=== PATIENT | male | born 1935 | race Caucasian/White ===

== ENCOUNTER 2016-11-05 12:36 | Inpatient (IN) | payer OTHER ==
[2016-11-05 12:52] LABS: MANUAL DIFF NEEDED? NO
[2016-11-05 12:53] LABS: BASO% 0.2 % (0.0-0.8); EOS# 0.05 X1000 (0.0-0.7); EOS% 0.4 % (0.0-10.0); HEMATOCRIT 33.7 % (42.0-52.0); HEMOGLOBIN 10.5 g/dL (14.0-18.0); IMM GRAN# 0.21 X1000 (0.0-0.04); IMM GRAN% 1.7 % (0.0-0.5); LYMPH# 2.38 X1000 (1.2-3.4); LYMPH% 18.9 % (20.5-51.1); MCH 30.8 PG (27-31); MCHC 31.2 g/dL (33-37); MCV 98.8 FL (81-99); MONO% 6.4 % (1.7-9.3); MPV 9.7 FL (7.4-10.4); NEUT% 72.4 % (42.2-75.2); PLT 312 X1000 (130-400); RBC 3.41 XMIL (4.7-6.1)
[2016-11-05 13:08] LABS: INR 1.08 (0.86-1.15); PROTIME 14.3 Seconds (12.1-15.5)
[2016-11-05 13:09] LABS: PTT PL 32.6 Seconds (22.6-43.9)
--- NOTE | 2016-11-05 13:15 | PROVIDER DOCUMENTATION ---
HPI-Respiratory General - General Chief Complaint: Shortness of Breath Stated Complaint: SOB Time Seen by Provider: 11/05/16 13:12 Source: patient Allergies/Adverse Reactions: Patient Allergies Allergy/AdvReac Type Severity Reaction Status Date / Time No Known Allergies Allergy Verified 05/30/15 08:59 Home Medications: Home Medication List Medication Instructions Recorded Confirmed Last Taken Type Atorvastatin Calcium [Lipitor] 20 mg PO DAILY 04/13/15 06/01/15 05/30/15 History Metoprolol Succinate E.r. [Toprol 25 mg PO BID 04/13/15 06/01/15 05/30/15 History Xl] Ubidecarenone [Co Q-10] 200 mg PO DAILY 05/30/15 06/01/15 05/30/15 History - History of Present Illness-Resp Nature of Presenting Problem: Pt is present to the Er with complaints of difficulty breathing and coughing. pt denies wearing oxygen at home.Pt has a hx of pneumonia, prostate cancer nd OR. Pt denies hx of blood clots. Pt states he is always constipated at home. pt denies nausea and appears in no acute distress. Quality of Pain: reports: aching (when breathing) Severity in ED: reports: mild Onset/Duration: reports: unsure Timing: reports: still present Cough Quality/Degree: reports: moderate Associated Symptoms: reports: chest pain/soreness (when breathing) Similar Symptoms Previously?: No Recently seen or treated by another doctor?: No Review of Systems - Adult - REVIEW OF SYSTEMS - ADULT Constitutional: denies: chills, fatique, night sweats Eyes: reports: no symptoms reported Ears, Nose, Mouth & Throat: reports: no symptoms reported Cardiovascular: reports: chest pain (pt states pain is all over the chest and it hurts when breathing) Respiratory: reports: cough, wheezing (right side), other (Bilateral rhonchi NSR ; frequent PVC's). denies: shortness of breath Gastrointestinal: reports: constipation (pt states he is always constipated). denies: abdominal pain, hematemesis Genitourinary: reports: no symptoms reported Musculoskeletal: reports: no symptoms reported Integumentary: reports: no symptoms reported Neurological: reports: no symptoms reported Psychiatric: reports: no symptoms reported Endocrine: reports: no symptoms reported Hematologic/Lymphatic: reports: no symptoms reported Allergic/Immunologic: reports: no symptoms reported All Other Systems: Reviewed and Negative Past History - Adult - PAST MEDICAL HISTORY-ADULT Review of Records: reports: Nursing Assessment Review Major Childhood Illnesses: reports: denies history Cardiovascular: reports: HTN Respiratory: reports: denies history Gastrointestinal: reports: denies history Obstetrical/Gynecological: reports: denies history Genitourinary: reports: kidney stones, prostate cancer Musculoskeletal: reports: denies history Neurological: reports: CVA Endocrine/Immune: reports: Diabetes Other Conditions: reports: denies history - PRIOR SURGERIES/PROCEDURES Surgical/Procedure History: reports: none - PRIOR HOSPITALIZATIONS Prior Hospitalizations: reports: for similar symptoms - IMMUNIZATION STATUS Childhood Immunizations: See Nurse Assessment Flu Vaccine: See Nurse Assessment - FAMILY HISTORY Family History: reviewed, not pertinent - SOCIAL HISTORY Substance Use: none/never Alcohol Use Frequency: never Physical Exam-General - PHYSICAL EXAM-ADULT Initial Vital Signs Reviewed: Yes - CONSTITUTIONAL General Appearance: alert, no apparent distress - EYES Eyes: PERRL/EOMI, pink conjunctivae - HEAD, EARS, NOSE, MOUTH & THROAT HENMT: moist mucous membranes - NECK Neck: non-tender, full range of motion - RESPIRATORY Respiratory: chest non-tender, rhonchi (bilateral), wheezing (right ride) - CARDIOVASCULAR Cardiovascular: regular rate, rhythm (SR with occ PVC's and PAC's Left bundle branch block abnormal ECG), no edema - GASTROINTESTINAL (ABDOMEN) Abdominal Exam: normal bowel sounds, non tender, soft - LYMPHATIC Lymphatic: no adenopathy - MUSCULOSKELETAL Extremity: normal range of motion, non-tender - SKIN Integumentary: normal color, normal turgor, warm/dry - NEUROLOGIC Neurologic: grossly normal - PSYCHIATRIC Psych/Mental Status: normal mood/affect, oriented x 3 Progress - PLAN OF CARE/RESULTS Progress/Plan/Lab Results: Laboratory Tests 11/05/16 11/05/16 11/05/16 12:48 12:48 12:48 WBC RBC Hgb Hct MCV MCH MCHC RDW Std Deviation Plt Count MPV Immature Gran % (Auto) Neut % (Auto) Lymph % (Auto) [place] % (Auto) Eos % (Auto) Baso % (Auto) Immature Gran # (Auto) Neut # (Auto) Lymph # (Auto) [place] # (Auto) Eos # (Auto) Baso # (Auto) PT INR APTT (Factor Assay) Specimen Type Sample Site pH pCO2 pO2 HCO3 Base Excess Oxyhemoglobin ABG O2 Sat (Calculated) ABG O2 Saturation ABG Carboxyhemoglobin ABG Methemoglobin Jose Test A-a O2 Difference Total Hemoglobin Lactate Blood Gas Modality FiO2 % Sodium 140 Potassium 4.4 Chloride 103 Carbon Dioxide 26 Anion Gap 11 BUN 31 H Creatinine 1.6 H Estimated GFR/1.73 m2 41 BUN/Creatinine Ratio 19 Glucose 178 H Calculated Osmolality 290 Calcium 9.1 Magnesium 2.5 Total Bilirubin 0.30 AST 14 ALT 8 L Alkaline Phosphatase 91 Creatine Kinase 42 Troponin T < 0.010 Rsy-T-Dgsebwjeftl Pept 4515 H Total Protein 6.8 Albumin 3.5 Globulin 3.0 Albumin/Globulin Ratio 1.0 Influenza A (Rapid) Influenza B (Rapid) 11/05/16 11/05/16 11/05/16 12:48 12:48 12:48 WBC 12.56 H RBC 3.41 L Hgb 10.5 L Hct 33.7 L MCV 98.8 MCH 30.8 MCHC 31.2 L RDW Std Deviation 12.6 Plt Count 312 MPV 9.7 Immature Gran % (Auto) 1.7 H Neut % (Auto) 72.4 Lymph % (Auto) 18.9 L [place] % (Auto) 6.4 Eos % (Auto) 0.4 Baso % (Auto) 0.2 Immature Gran # (Auto) 0.21 H Neut # (Auto) 9.10 H Lymph # (Auto) 2.38 [place] # (Auto) 0.80 H Eos # (Auto) 0.05 Baso # (Auto) 0.02 PT 14.3 INR 1.08 APTT (Factor Assay) 32.6 Specimen Type Sample Site pH pCO2 pO2 HCO3 Base Excess Oxyhemoglobin ABG O2 Sat (Calculated) ABG O2 Saturation ABG Carboxyhemoglobin ABG Methemoglobin Jose Test A-a O2 Difference Total Hemoglobin Lactate Blood Gas Modality FiO2 % Sodium Potassium Chloride Carbon Dioxide Anion Gap BUN Creatinine Estimated GFR/1.73 m2 BUN/Creatinine Ratio Glucose Calculated Osmolality Calcium Magnesium Total Bilirubin AST ALT Alkaline Phosphatase Creatine Kinase Troponin T Lqp-B-Saxtycafbdu Pept Total Protein Albumin Globulin Albumin/Globulin Ratio Influenza A (Rapid) NEGATIVE Influenza B (Rapid) NEGATIVE 11/05/16 13:15 WBC RBC Hgb Hct MCV MCH MCHC RDW Std Deviation Plt Count MPV Immature Gran % (Auto) Neut % (Auto) Lymph % (Auto) [place] % (Auto) Eos % (Auto) Baso % (Auto) Immature Gran # (Auto) Neut # (Auto) Lymph # (Auto) [place] # (Auto) Eos # (Auto) Baso # (Auto) PT INR APTT (Factor Assay) Specimen Type ARTERIAL Sample Site L RADIAL pH 7.38 pCO2 48 H pO2 50 L HCO3 26.9 H Base Excess 2.7 Oxyhemoglobin 86.7 L* ABG O2 Sat (Calculated) 11.7 L ABG O2 Saturation 90.5 L ABG Carboxyhemoglobin 2.50 ABG Methemoglobin 1.6 H Jose Test YES A-a O2 Difference 40.0 Total Hemoglobin 9.6 L Lactate 0.50 Blood Gas Modality ROOM AIR FiO2 % 21.0 Sodium Potassium Chloride Carbon Dioxide Anion Gap BUN Creatinine Estimated GFR/1.73 m2 BUN/Creatinine Ratio Glucose Calculated Osmolality Calcium Magnesium Total Bilirubin AST ALT Alkaline Phosphatase Creatine Kinase Troponin T Kls-P-Eglddrphomy Pept Total Protein Albumin Globulin Albumin/Globulin Ratio Influenza A (Rapid) Influenza B (Rapid) Orders Category Date Time Status Admit - [facility] Routine AdmDCTranf 11/05/16 13:45 Ordered Activity - Bed Rest with BRP ORDERED Care 11/05/16 13:45 Active Call Admitting on Arrival AT ADMISSION Care 11/05/16 13:45 Active Cardiac Monitoring DIRECTED Care 11/05/16 12:37 Inactive Cardiac Monitoring DIRECTED Care 11/05/16 12:56 Inactive Cardiac Monitoring DIRECTED Care 11/05/16 12:59 Active Neurological Check q2h Care 11/05/16 13:45 Active Oxygen Therapy- ED Nursing DIRECTED Care 11/05/16 12:37 Inactive Oxygen Therapy- ED Nursing DIRECTED Care 11/05/16 12:56 Inactive Oxygen Therapy- ED Nursing DIRECTED Care 11/05/16 12:59 Active Saline Loc DIRECTED Care 11/05/16 13:45 Active Saline Loc NOW Care 11/05/16 12:37 Inactive Saline Loc NOW Care 11/05/16 12:56 Inactive Saline Loc NOW Care 11/05/16 12:59 Active Vital Signs Order Q2H Care 11/05/16 13:45 Active Heart Healthy Diet Diet 11/05/16 13:47 Active CHEST-2 VIEWS [RAD] Stat Exams 11/05/16 12:59 Draft ABG [RESP] Routine Lab 11/05/16 13:15 Completed BLOOD CULTURE [BLDCUL] Stat Lab 11/05/16 13:42 Ordered CBC WITH ELECTRONIC DIFF [HEME] Stat Lab 11/05/16 12:48 Completed CK PROFILE [SP CHEM] Stat Lab 11/05/16 12:48 Completed COMPREHENSIVE METABOLIC PANEL [CHEM] Stat Lab 11/05/16 12:48 Completed Flu [INFLUENZA SCREEN PL] Stat Lab 11/05/16 12:48 Completed LACTATE, PLASMA [CHEM] Stat Lab 11/05/16 13:42 Uncollected MAGNESIUM [CHEM] Stat Lab 11/05/16 12:48 Completed PRO B-NATRIURETIC PEPTIDE Stat Lab 11/05/16 12:48 Com[address]IME WITH INR PL [COAG] Stat Lab 11/05/16 12:[address] [COAG] Stat Lab 11/05/16 12:48 Completed TROPONIN T Stat Lab 11/05/16 12:48 Completed Albuterol 2.5MG/Ipratrop 0.5MG [Duoneb (A & A)] Med 11/05/16 13:41 Discontinued 3 ml INH NOW ONE Albuterol 2.5MG/Ipratrop 0.5MG [Duoneb (A & A)] Med 11/05/16 15:30 Active 3 ml INH RTQ4H Ondansetron [Zofran] Med 11/05/16 13:45 Active 4 mg IV Q4H PRN PRN Aerosol Treatments Routine Oth 11/05/16 13:41 Active Aerosol Treatments Routine Oth 11/05/16 13:47 Active Aerosol Treatments Stat Oth 11/05/16 13:41 Active Aerosol Treatments Stat Oth 11/05/16 13:47 Active Oxygen Device Routine Oth 11/05/16 13:46 Active Telemetry [OM.EQ] Routine Oth 11/05/16 13:45 Active EKG [EKG] Stat Ther 11/05/16 12:59 Draft Transfer/Admit Order [TRANSFER] Routine Transfer 11/05/16 13:42 Ordered Vital Signs - 24 hr 11/05/16 12:42 Temperature 98 F Pulse Rate 73 Respiratory 20 Rate Blood Pressure 141/69 O2 Sat by Pulse 92 L Oximetry - EKG 1 Time of EKG reading by physician:: 13:17 EKG Read and Signed by:: Ousmane Ruiz EKG Interpretation (*Must complete 3 of following elements*): Abnormal Rate: 71 Rhythm: SR with occ PVC's and PAC's QRS: LBB - XRAY 1 XRAY: Bilateral XRAY Study: Chest Impression: Abnormal (COPD changes pulmonary fibrosis dipharmatic and hiatal hernia) - CONSULTS/PCP/HOSPITALIST Notification #1 *Consult/PCP/Hospitalist*: MD Luo Time Discussed: 13:44 Reason/Comments: call him for admission Consult Disposition: Admit Departure - Departure Time of Disposition Order: 13:42 DIAGNOSIS: SOB (shortness of breath), COPD exacerbation, Bronchitis Disposition: ADMITTED INPATIENT 09 Certified Medical Emergency: Emergent Condition: Stable Referrals: Michele Luo MD [Primary Care Provider] - Attestation - Scribe Verification/Attestation Scribe:: Prateek Littlejohn Acting as Scribe for:: Ousmane Ruiz Scribe documention review:: This chart was documented by a scribe and accurately reflects the service the provider performed and the decisions made by the provider.
[2016-11-05 13:32] LABS: ALBUMIN 3.5 g/dL (3.5-5.0); CALCIUM 9.1 mg/dL (8.8-10.2); MAGNESIUM 2.5 mg/dL (1.5-2.7); POTASSIUM 4.4 mmol/L (3.5-5.1); TOTAL BILIRUBIN 0.3 mg/dL (0.20-1.00); TOTAL PROTEIN 6.8 g/dL (6.3-8.3)
--- NOTE | 2016-11-05 13:37 | Diag Imaging Result Document ---
PROCEDURE NAME: CHEST-2 VIEWS - 11/05/2016 FRONTAL AND LATERAL CHEST, 2 VIEWS. COMPARISON: Compared to 05/17/2015. FINDINGS: The right hemidiaphragm is elevated. The heart is not enlarged. There are increased interstitial markings diffusely in both lungs. These appear fairly similar to that of the prior exam considering the differences in technique. No pleural effusions. There are multiple pieces of metal in the back and abdomen. These were present on the prior exam. IMPRESSION: Increased interstitial markings believed to be fibrosis.
[2016-11-05] MEDS ORDERED: DUONEB (A & A) INH ONE (13:41)
[2016-11-05 13:46] LABS: BE 2.7 mmoll (-3.0-3.0); BLOOD TYPE ARTERIAL; DRAW SITE L RADIAL; METHB 1.6 % (0.0-1.5); O2(CT) 11.7 mL/dL (15.0-23.0); PCO2(98.6) 48 mmHg (35-45); PO2(98.6) 50 mmHg (60-100); SAMPLE BLOOD; SAO2 90.5 % (95.0-100.0); THB 9.6 g/dL (11.5-17.4); pH(98.6) 7.38 (7.35-7.45)
[2016-11-05 13:48] LABS: ALLEN TEST YES; MODALITY ROOM AIR
--- NOTE | 2016-11-05 13:52 | EKG Report ---
Test Performed on : 11/05/2016 1:17:38 PM Test Reason : CHEST PAIN Blood Pressure : / mmHG Vent. Rate : 071 BPM Atrial Rate : 071 BPM P-R Int : 154 ms QRS Dur : 122 ms QT Int : 394 ms P-R-T Axes : 069 -29 059 degrees QTc Int : 428 ms Sinus rhythm. with occasional premature ventricular complexes. and premature atrial complexes. Left bundle branch block Abnormal ECG When compared with ECG of 30-SEP-2014 11:47, premature ventricular complexes. are now present Vent. rate has decreased BY 36 BPM Left bundle branch block is now present Criteria for Anterior infarct are no longer present Unconfirmed Result
[2016-11-05] MEDS ORDERED: LASIX IV ONE (14:03)
[2016-11-05] MEDS: ZOFRAN IV PRN (14:59)
[2016-11-05] MEDS: DUONEB (A & A) INH SCH ×3 (15:26→23:34)
[2016-11-05 16:41] LABS: URINE SOURCE CLEAN CATCH
[2016-11-05 16:52] LABS: BILIRUBIN URINE NEGATIVE (NEGATIVE); BLOOD URINE 2+ (NEGATIVE); CLARITY VERY CLOUDY (CLEAR); COLOR YELLOW; GLUCOSE URINE NEGATIVE (NEGATIVE); LEUKOCYTES URINE 2+ (NEGATIVE); NITRITE URINE POSITIVE (NEGATIVE); PROTEIN URINE 1+(30 mg/dL) mg/dL (NEGATIVE); UROBILINOGEN URINE NORMAL
[2016-11-05 17:00] LABS: URINE CULTURE PL NEEDED? YES; URINE EPITHELIAL CELLS <10 /HPF (<10); URINE WBC 20-40 /HPF (<10)
[2016-11-05] MEDS ORDERED: ROCEPHIN 1 GM/NS 50 ML IV STA (18:06)
[2016-11-05] MEDS ORDERED: NS 500 ML ONE (18:21)
[2016-11-05] MEDS ORDERED: NS 500 ML IV SCH (18:30)
[2016-11-05] MEDS: ZITHROMAX 500 MG/NS 250 ML IV SCH (19:14)
[2016-11-05] MEDS: TOPROL XL PO SCH (21:21)
[2016-11-06] MEDS: ZOFRAN IV PRN ×2 (02:01→12:59)
[2016-11-06] MEDS: DUONEB (A & A) INH SCH ×5 (03:30→20:15)
--- NOTE | 2016-11-06 07:32 | Diag Imaging Result Document ---
PROCEDURE NAME: SINUSES BRENNAN VIEW ONLY - 11/05/2016 SINUS SERIES PORTABLE TWO VIEWS: FINDINGS: No sinus opacification. No air fluid levels. There is mucosal thickening inferiorly in the right maxillary sinus. No bony expansion. IMPRESSION: Right maxillary sinusitis.
[2016-11-06] MEDS: TOPROL XL PO SCH ×2 (08:05→22:02)
[2016-11-06] MEDS: COENZYME Q10 PO SCH (08:05)
--- NOTE | 2016-11-06 15:16 | Diag Imaging Result Document ---
PROCEDURE NAME: CHEST-2 VIEWS - 11/06/2016 CHEST, TWO VIEWS: COMPARISON: 11/05/2016, 05/17/2015. INDICATION: Aspiration. FINDINGS: There is cardiomegaly, pulmonary emphysema, and elevated hemidiaphragm, similar to prior. There is stable parenchymal fibrosis, lateral left lung. There is new linear plate-like atelectasis at the right lung base. There is increasing colonic distention. There are multiple radiopaque foreign bodies, as noted previously. IMPRESSION: 1. New plate-like atelectasis at the right lung base. 2. Elevated right hemidiaphragm with increasing bowel distention. 3. Stable left peripheral interstitial fibrosis.
[2016-11-06] MEDS: ZITHROMAX 500 MG/NS 250 ML IV SCH (18:20)
[2016-11-06 21:37] LABS: HEMATOCRIT 30.9 % (42.0-52.0); HEMOGLOBIN 9.7 g/dL (14.0-18.0); MCH 31.1 PG (27-31); MCHC 31.4 g/dL (33-37); MPV 9.4 FL (7.4-10.4); RBC 3.12 XMIL (4.7-6.1)
[2016-11-06] MEDS: LIPITOR PO SCH (22:01)
[2016-11-06 22:21] LABS: ALBUMIN 3.1 g/dL (3.5-5.0); POTASSIUM 4.1 mmol/L (3.5-5.1); TOTAL BILIRUBIN 0.2 mg/dL (0.20-1.00); TOTAL PROTEIN 6.1 g/dL (6.3-8.3)
[2016-11-07] MEDS: DUONEB (A & A) INH SCH ×7 (00:31→22:49)
[2016-11-07] MEDS: COENZYME Q10 PO SCH (08:50)
[2016-11-07] MEDS: TOPROL XL PO SCH ×2 (08:50→19:33)
[2016-11-07] MEDS: ROCEPHIN 1 GM/NS 50 ML IV SCH (16:49)
[2016-11-07] MEDS: ZITHROMAX 500 MG/NS 250 ML IV SCH (17:57)
[2016-11-07] MEDS: LIPITOR PO SCH ×2 (19:33→21:16)
[2016-11-08] MEDS: TOPROL XL PO SCH ×3 (00:59→20:27)
[2016-11-08] MEDS: DUONEB (A & A) INH SCH ×6 (03:41→23:06)
[2016-11-08] MEDS: LINZESS PO SCH (06:03)
[2016-11-08] MEDS: COENZYME Q10 PO SCH (10:16)
[2016-11-08 14:25] LABS: BE 4.3 mmoll (-3.0-3.0); BLOOD TYPE ARTERIAL; METHB 1.6 % (0.0-1.5); O2(CT) 13.2 mL/dL (15.0-23.0); PCO2(98.6) 44 mmHg (35-45); PO2(98.6) 52 mmHg (60-100); SAMPLE BLOOD; SAO2 93.6 % (95.0-100.0); THB 10.4 g/dL (11.5-17.4); pH(98.6) 7.43 (7.35-7.45)
[2016-11-08 14:27] LABS: ALLEN TEST YES; DRAW SITE R RADIAL; MODALITY ROOM AIR
[2016-11-08] MEDS: ROCEPHIN 1 GM/NS 50 ML IV SCH (15:03)
[2016-11-08 16:13] LABS: MANUAL DIFF NEEDED? NO
[2016-11-08] MEDS: LOVENOX SUBQ SCH (16:29)
[2016-11-08 16:57] LABS: ALBUMIN 3.3 g/dL (3.5-5.0); CALCIUM 9.3 mg/dL (8.8-10.2); POTASSIUM 4.9 mmol/L (3.5-5.1); TOTAL BILIRUBIN 0.2 mg/dL (0.20-1.00)
[2016-11-08 17:21] LABS: BASO% 0.3 % (0.0-0.8); EOS# 0.15 X1000 (0.0-0.7); EOS% 2.1 % (0.0-10.0); HEMATOCRIT 32.8 % (42.0-52.0); HEMOGLOBIN 10.6 g/dL (14.0-18.0); IMM GRAN# 0.09 X1000 (0.0-0.04); IMM GRAN% 1.3 % (0.0-0.5); LYMPH# 1.85 X1000 (1.2-3.4); LYMPH% 26.5 % (20.5-51.1); MCH 31.7 PG (27-31); MCHC 32.3 g/dL (33-37); MCV 98.2 FL (81-99); MONO# 0.59 X1000 (0.11-0.59); MONO% 8.4 % (1.7-9.3); MPV 9.4 FL (7.4-10.4); NEUT% 61.4 % (42.2-75.2); PLT 460 X1000 (130-400); RBC 3.34 XMIL (4.7-6.1)
[2016-11-08] MEDS: ZITHROMAX 500 MG/NS 250 ML IV SCH (18:06)
[2016-11-08] MEDS: DESYREL PO PRN (20:27)
[2016-11-08] MEDS: LIPITOR PO SCH (20:27)
[2016-11-09] MEDS: DUONEB (A & A) INH SCH ×6 (05:43→23:16)
[2016-11-09] MEDS: LINZESS PO SCH (06:52)
[2016-11-09] MEDS: COENZYME Q10 PO SCH (09:26)
[2016-11-09] MEDS: TOPROL XL PO SCH ×2 (09:26→20:15)
[2016-11-09 12:56] LABS: BE 4.1 mmoll (-3.0-3.0); BLOOD TYPE ARTERIAL; DRAW SITE L RADIAL; METHB 2.1 % (0.0-1.5); O2(CT) 15.4 mL/dL (15.0-23.0); PCO2(98.6) 45 mmHg (35-45); PO2(98.6) 55 mmHg (60-100); SAMPLE BLOOD; SAO2 93.1 % (95.0-100.0); THB 12.3 g/dL (11.5-17.4); pH(98.6) 7.42 (7.35-7.45)
[2016-11-09 13:01] LABS: MODALITY ROOM AIR
[2016-11-09 13:02] LABS: ALLEN TEST YES
[2016-11-09] MEDS: ROCEPHIN 1 GM/NS 50 ML IV SCH (15:10)
[2016-11-09] MEDS: LOVENOX SUBQ SCH (17:09)
[2016-11-09] MEDS: ZITHROMAX 500 MG/NS 250 ML IV SCH (18:03)
[2016-11-09] MEDS: DESYREL PO PRN (20:15)
[2016-11-09] MEDS: LIPITOR PO SCH (20:15)
[2016-11-10] MEDS: DUONEB (A & A) INH SCH ×6 (04:14→23:32)
[2016-11-10] MEDS: LINZESS PO SCH (06:43)
[2016-11-10] MEDS: COENZYME Q10 PO SCH (09:31)
[2016-11-10] MEDS: TOPROL XL PO SCH ×2 (09:31→20:22)
[2016-11-10] MEDS: LOVENOX SUBQ SCH (16:30)
[2016-11-10] MEDS: ROCEPHIN 1 GM/NS 50 ML IV SCH (16:30)
[2016-11-10] MEDS: ZITHROMAX 500 MG/NS 250 ML IV SCH (17:45)
[2016-11-10] MEDS: DESYREL PO PRN (20:21)
[2016-11-10] MEDS: LIPITOR PO SCH (20:22)
[2016-11-11] MEDS: DUONEB (A & A) INH SCH ×4 (02:58→15:36)
[2016-11-11] MEDS: LINZESS PO SCH (06:23)
[2016-11-11] MEDS: COENZYME Q10 PO SCH (08:55)
[2016-11-11] MEDS: TOPROL XL PO SCH (08:55)
--- NOTE | 2016-11-11 10:06 | Extremity Venous Study ---
PROCEDURE NAME: Venous U/S Bilateral Legs - 11/08/2016 BILATERAL LOWER EXTREMITY VENOUS DOPPLER ULTRASOUND: COMPARISON: None. FINDINGS: The deep veins of the lower extremities are fully compressible. There is normal color and pulse wave Doppler signal. IMPRESSION: Negative exam.
[2016-11-11] MEDS: ROCEPHIN 1 GM/NS 50 ML IV SCH (15:20)
[2016-11-11] MEDS: LOVENOX SUBQ SCH (15:21)
[2016-11-11 15:50] VITALS: BP 103/49
[2016-11-11] MEDS: ZITHROMAX 500 MG/NS 250 ML IV SCH (17:38)
--- NOTE | 2016-12-07 13:48 | HISTORY AND PHYSICAL ---
HISTORY OF PRESENT ILLNESS: This patient presented to the emergency room complaining of difficulty breathing and coughing up quite a bit of phlegm. He has a history of pneumonia and prostate cancer. Patient denies any history of any blood clots. He is not nauseated, has not been vomiting, does not appear to be in any acute distress. He is chronically constipated. When he arrived in the ER, his pulse was 73, respiratory rate was 20, blood pressure 141/69, and O2 saturation was 92%. He had a comp which showed a BUN of 31, creatinine 1.6, BUN creatinine ratio of 19. Glucose was 178, sodium 140, potassium 4.4, chloride 103, and CO2 was 26. GFR was 41. Glucose 178. His calcium was 9.1, magnesium 2.5, total bilirubin 0.3. AST and ALT normal. Alkaline phosphatase normal. CK 42. Troponin 0.10. BNP 4015. Total protein 6 8, albumin 3.5, globulin 3. White count was 12,560. Hemoglobin was 0.5, hematocrit 33.7, and platelet count 312,000. INR was 1.08. Flu was negative. Blood gas: pH 7.38, pCO2 of 48, PO2 50. His lactate was 0.5 and gases were obtained on room air. He was given several treatments of albuterol in the emergency room. His chest x-ray showed COPD changes, pulmonary fibrosis, and a hiatal hernia, unchanged from previous examination. EKG showed sinus rhythm with occasional PVCs and PACs. He was admitted with a COPD exacerbation with respiratory insufficiency manifested by the low PO2 of 50. ALLERGIES: He has no known allergies. CURRENT MEDICATIONS: Atorvastatin 20 daily, metoprolol succinate 25 p.o. b.i.d., Co-Q 10 of 200, and otherwise no other medications that he can recall. He is somewhat compromised at times as far as his mental status. PAST MEDICAL HISTORY: He has a history of hypertension, history of kidney stones, and prostate cancer. He has had a previous CVA/TIA. He has a history of diabetes in the past. PAST SURGICAL HISTORY: He reports no surgical procedures. REVIEW OF SYSTEMS: Constitutional: He denies any chills, fever, or night sweats. HEENT: No change in his visual acuity. No irritation or drainage from his eyes. Ears: Somewhat diminished hearing. Otherwise, no complaints. No pharyngitis. He has some nasal congestion. Cardiovascular: He has chest pain all over his chest and it hurts primarily when he was breathing. Respiratory: He is wheezing. He denied shortness of breath. Coughing quite a bit. Gastrointestinal: He is always constipated, but denies any hematemesis or melena. He occasionally has reflux. Genitourinary: He has some frequency, urgency, some urinary continence. He has had a long-standing history of prostate issues. 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 Musculoskeletal: Just general aches and pains. Skin: No particular skin rash or lesions. Neurological: No focal neurological deficits. 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 Endocrine: No polyuria or polydipsia. No heat or cold intolerance. Allergies: No history of asthma, hay fever. PHYSICAL EXAMINATION: HEENT: At the time of admission, he was normocephalic with male pattern baldness. Eyes were PERRLA. S and C were clear and anicteric. Nares negative. Oropharynx negative. NECK: Supple. Bounding carotids. Midline trachea. No lymphadenopathy. No thyromegaly. CHEST: He has increased AP diameter, diminished breath sounds, rhonchi throughout both lung ruano. No appreciated consolidative findings. CARDIOVASCULAR: He had a regular rhythm and rate. No murmurs, gallops, clicks, or rubs were appreciated. ABDOMEN: Soft. No hepatosplenomegaly. No CVA tenderness. EXTREMITIES: Negative for clubbing, cyanosis, or edema. NEUROLOGICAL: Examination was intact. ADMITTING DIAGNOSIS: 1. Chronic obstructive pulmonary disease exacerbation with respiratory failure. 2. History of diabetes. 3. History of chronic obstructive pulmonary disease. 4. History of prostate cancer. He was admitted for therapy.
--- NOTE | 2016-12-08 04:05 | DISCHARGE SUMMARY ---
ADMISSION DATE: 11/08/2016 DISCHARGE DATE: 11/11/2016 HOSPITAL COURSE: The patient was admitted to the hospital after he presented to the emergency room with shortness of breath. He has a longstanding history of COPD secondary to distant smoking. When he presented here on this particular visit, he had some interstitial changes on his chest x-ray. No clear pneumonia. Some nonspecific findings on this sinus film. He was started on antibiotics, ceftriaxone 1 g daily, azithromycin 500 daily IV, along with Linzess for his chronic constipation, trazodone to help him sleep, Lovenox for DVT prophylaxis. He also was given albuterol, ipratropium medicines on a regular basis. During this stay, his microbiology, his sputum grew out Klebsiella pneumoniae and his urine grew out E. coli. The Klebsiella was sensitive to Levaquin and Septra. Urine grew out E. coli. It likewise was resistant to Levaquin, resistant to Septra, and sensitive intermediately to Augmentin and cefazolin. His flu swabs were negative. Because of his hypoxia and D-dimer, we did studies on his legs that were negative for clot. Chest x-rays did not show any evolutionary pattern. He was treated with these antibiotics. He ended up being discharged on Atorvastatin, metoprolol, Casodex. We will see him in the office to see what his O2 saturation does. He was continued on his Lipitor, metoprolol, albuterol, Atrovent likewise.
== END 2016-11-11 19:25 | disposition home health service (06) | DRG 191 ==
LOC: P.ED 12:36 → P.MEDSURG 12:37 → INTOOBSV 12:37 → OBSVTOIN 11-08 07:57
PROVIDERS: ADMIT Internal Medicine; ATTEND Internal Medicine
DX: J44.1 Chronic obstructive pulmonary disease with (acute) exacerbation (principal); N39.0 Urinary tract infection, site not specified; J84.10 Pulmonary fibrosis, unspecified; B96.1 Klebsiella pneumoniae [K. pneumoniae] as the cause of diseases classified elsewhere; E11.9 Type 2 diabetes mellitus without complications; I10 Essential (primary) hypertension; J32.9 Chronic sinusitis, unspecified; R09.02 Hypoxemia; K59.09 Other constipation; R09.3 Abnormal sputum; B96.22 Other specified Shiga toxin-producing Escherichia coli [E. coli] [STEC] as the cause of diseases classified elsewhere; Z85.46 Personal history of malignant neoplasm of prostate; Z86.73 Personal history of transient ischemic attack (TIA), and cerebral infarction without residual deficits; Z87.891 Personal history of nicotine dependence; Z79.899 Other long term (current) drug therapy
CPT/HCPCS: 70210; 71020; 80053; 81001; 82550; 82805; 82948; 83605; 83735; 83880; 84153; 84484; 85025; 85027; 85379; 85610; 85730; 87040; 87070; 87077; 87088; 87186; 87205; 87804; 93005; 93970; 94640; 94761; 96374; J0456; J0696; J1650; J1940; J2405; J7040; 92610-GN

== ENCOUNTER 2017-04-03 10:41 | Inpatient (IN) ==
[2017-04-03 11:06] LABS: MANUAL DIFF NEEDED? NO
[2017-04-03 11:09] LABS: BASO% 0.2 % (0.0-0.8); EOS# 0.17 X1000 (0.0-0.7); EOS% 1.2 % (0.0-10.0); HEMATOCRIT 36.5 % (42.0-52.0); HEMOGLOBIN 11.9 g/dL (14.0-18.0); IMM GRAN# 0.02 X1000 (0.0-0.04); IMM GRAN% 0.1 % (0.0-0.5); LYMPH# 2.34 X1000 (1.2-3.4); LYMPH% 16.3 % (20.5-51.1); MCH 30.8 PG (27-31); MCHC 32.6 g/dL (33-37); MCV 94.6 FL (81-99); MONO# 0.73 X1000 (0.11-0.59); MONO% 5.1 % (1.7-9.3); MPV 9.3 FL (7.4-10.4); NEUT% 77.1 % (42.2-75.2); PLT 306 X1000 (130-400); RBC 3.86 XMIL (4.7-6.1)
--- NOTE | 2017-04-03 11:27 | Diag Imaging Result Doc PS360 ---
EXAM: CHEST-2 VIEWS HISTORY: weakness TECHNIQUE: Two views COMMENT: There are fibrotic changes bilaterally which were also present on 11/06/2016. The right lung is actually slightly better expanded than it was previously. There are skin folds the particularly on the left. Compared to 04/12/2015 the lungs are not as well-expanded. IMPRESSION: Pulmonary fibrosis. Electronically signed by Yeyo Benton 04/03/2017 11:24 AM
--- NOTE | 2017-04-03 11:48 | EKG Report ---
Test Performed on : 04/03/2017 11:45:56 AM Test Reason : chest tender Blood Pressure : / mmHG Vent. Rate : 087 BPM Atrial Rate : 087 BPM P-R Int : 156 ms QRS Dur : 116 ms QT Int : 378 ms P-R-T Axes : 090 -19 152 degrees QTc Int : 454 ms Normal sinus rhythm. Anterior infarct , age undetermined ST \T\ T wave abnormality, consider lateral ischemia Abnormal ECG When compared with ECG of 05-NOV-2016 13:17, premature ventricular complexes. are no longer present premature atrial complexes. are no longer present Left bundle branch block is no longer present Anterior infarct is now present Unconfirmed Result
[2017-04-03] MEDS ORDERED: TORADOL IV STA (12:22)
[2017-04-03 12:51] LABS: ALBUMIN 3.6 g/dL (3.5-5.0); CALCIUM 9.5 mg/dL (8.8-10.2); POTASSIUM 4.5 mmol/L (3.5-5.1); TOTAL BILIRUBIN 0.4 mg/dL (0.20-1.00); TOTAL PROTEIN 7.3 g/dL (6.3-8.3)
--- NOTE | 2017-04-03 13:59 | Diag Imaging Result Doc PS360 ---
ABDOMEN FLAT/UPRIGHT - 04/03/2017 INDICATION: abdominal pain TECHNIQUE: Two views COMPARISON: CT from 05/16/2015 FINDINGS: There are numerous stable soft tissue foreign bodies throughout the right side of the abdomen and pelvis. There is rectal stool impaction with a stool ball measuring about 9.5 x 13 cm. No obvious bowel obstruction or free air. There is significant fibrosis in the lung bases. IMPRESSION: Severe rectal stool impaction. Electronically signed by Mychal Ulrich 04/03/2017 1:57 PM
[2017-04-03 14:16] LABS: URINE SOURCE CATH
[2017-04-03 14:26] LABS: BILIRUBIN URINE NEGATIVE (NEGATIVE); BLOOD URINE 2+ (NEGATIVE); CLARITY VERY CLOUDY (CLEAR); COLOR YELLOW; GLUCOSE URINE NEGATIVE (NEGATIVE); LEUKOCYTES URINE NEGATIVE (NEGATIVE); NITRITE URINE NEGATIVE (NEGATIVE); PROTEIN URINE TRACE mg/dL (NEGATIVE); URINE MICROSCOPIC NEEDED? YES; UROBILINOGEN URINE NORMAL
[2017-04-03 14:27] LABS: URINE CAST NONE SEEN /LPF; URINE CRYSTAL NONE SEEN /HPF; URINE EPITHELIAL CELLS <10 /HPF (<10); URINE RBC <10 /HPF (<10); URINE WBC <10 /HPF (<10)
[2017-04-03] MEDS ORDERED: ALBUTEROL NEB INH ONE (14:36)
[2017-04-03] MEDS ORDERED: ROCEPHIN 1 GM/NS 1 GM/50 ML IVPB IV ONE (14:37)
[2017-04-03] MEDS ORDERED: NS 1,000 ML IV ONE (15:01)
[2017-04-03] MEDS ORDERED: LEVAQUIN 750 MG/D5W 750 MG/150 ML IVPB IV ONE (15:06)
[2017-04-03] MEDS ORDERED: LINZESS PO ONE (15:07)
--- NOTE | 2017-04-03 16:17 | PROVIDER DOCUMENTATION ---
This chart was entered by Valery Ace Scribe, acting as scribe for Ilana Cristina CRNP. HPI-General Adult - General Chief Complaint: Back Pain Stated Complaint: pain Time Seen by Provider: 04/03/17 10:49 Source: patient Allergies/Adverse Reactions: Patient Allergies Allergy/AdvReac Type Severity Reaction Status Date / Time No Known Allergies Allergy Verified 04/03/17 16:02 Home Medications: Home Medication List Medication Instructions Recorded Confirmed Last Taken Type Bicalutamide [Casodex] 50 mg PO DAILY 04/03/17 04/03/17 Unknown History Tamsulosin [Flomax] 0.4 mg PO DAILY 04/03/17 04/03/17 Unknown History - History of Present Illness -Gen Adult Nature of Presenting Problems: 81 yo M presents to the ER with complaint of generalized pain. States he has been feeling "sick all over" for a couple weeks. Pt complains of pain everywhere and dysuria. States he has had subjective fever, n/v, and dysuria. Has increased back pain and abdominal pain. Location of Pain/Injury: reports: generalized Onset/Duration: reports: 3 days ago Associated Symptoms: reports: arm pain, back/neck pain, constipation, fever/ chills, genitourinary problems, joint pain, muscle aches, sinus congestion/ drainage, vomiting. denies: cough Review of Systems - Adult - REVIEW OF SYSTEMS - ADULT Constitutional: reports: chills. denies: fever Eyes: reports: no symptoms reported Ears, Nose, Mouth & Throat: reports: no symptoms reported Cardiovascular: denies: chest pain, palpitations Respiratory: denies: cough, shortness of breath Gastrointestinal: reports: abdominal pain, constipation. denies: diarrhea, nausea, vomiting Genitourinary: reports: dysuria. denies: discharge Musculoskeletal: reports: joint pain, muscle aches Integumentary: reports: no symptoms reported Neurological: reports: no symptoms reported Psychiatric: reports: no symptoms reported Endocrine: reports: no symptoms reported Hematologic/Lymphatic: reports: no symptoms reported Allergic/Immunologic: reports: no symptoms reported All Other Systems: Reviewed and Negative Past History - Adult - PAST MEDICAL HISTORY-ADULT Review of Records: reports: Nursing Assessment Review, Medications Reviewed Cardiovascular: reports: HTN Genitourinary: reports: kidney stones, prostate cancer Neurological: reports: CVA Endocrine/Immune: reports: Diabetes - PRIOR SURGERIES/PROCEDURES Surgical/Procedure History: reports: none - PRIOR HOSPITALIZATIONS Prior Hospitalizations: reports: for similar symptoms - IMMUNIZATION STATUS Childhood Immunizations: See Nurse Assessment Flu Vaccine: See Nurse Assessment Physical Exam-General - PHYSICAL EXAM-ADULT Initial Vital Signs Reviewed: Yes - CONSTITUTIONAL General Appearance: alert, no apparent distress - EYES Eyes: PERRL/EOMI, pink conjunctivae - HEAD, EARS, NOSE, MOUTH & THROAT HENMT: normocephalic/atraumatic, moist mucous membranes - NECK Neck: full range of motion, supple - RESPIRATORY Respiratory: lungs clear, normal breath sounds Progress - PLAN OF CARE/RESULTS Progress/Plan/Lab Results: Vital Signs - 8 hr 04/03/17 10:42 Temperature 97.9 F Pulse Rate 82 Respiratory Rate 18 Blood Pressure 143/79 O2 Sat by Pulse Oximetry [address] Reyez aware of patient admission. Result Diagrams: 04/03/17 11:05 04/03/17 11:05 - REASSESSMENT Reassessment #1 Time Reassessed: 12:50 Status: improving Reassessment Comment: resting quietly on bed - EKG 1 Time of EKG reading by physician:: 11:45 EKG Read and Signed by:: Mynor Reyez EKG Interpretation (*Must complete 3 of following elements*): Abnormal ( anterior infarct, age undetermined) Rate: 87 Rhythm: normal sinus rhythm Lena: normal QRS: normal CO Interval: normal ST Wave: non-specific ST changes (ST&T wave abnormality, consider lateral ischemia) - XRAY 1 XRAY Study: Chest Impression: See EMR Report (pulmonary fibrosis, per radiologist) 2 XRAY Study: Chest Impression: Abnormal (severe rectal stool impaction, per radiologis) - CONSULTS/PCP/HOSPITALIST Notification #1 *Consult/PCP/Hospitalist*: Dr. Luo Time Discussed: 14:40 Reason/Comments: admission for pneumonia ,UTI Consult Disposition: Admit Departure - Departure Date of Disposition Decision: 04/03/17 Time of Disposition Decision: 14:46 DIAGNOSIS: UTI (urinary tract infection) Qualifiers: Urinary tract infection type: site unspecified Hematuria presence: without hematuria Qualified Code(s): N39.0 - Urinary tract infection, site not specified Pneumonia Qualifiers: Pneumonia type: due to unspecified organism Laterality: unspecified laterality Lung location: unspecified part of lung Qualified Code(s): J18.9 - Pneumonia, unspecified organism Constipation Qualifiers: Constipation type: unspecified constipation type Qualified Code(s): K59.00 - Constipation, unspecified Disposition: ADMITTED INPATIENT 09 Certified Medical Emergency: Emergent Condition: Stable - Critical Care Note This patient required my direct & personal management of CC.: No Attestation - Physician/ DENNISE Attestation Patient care was provided by Advanced Practice Provider:: Yes Advanced Practice Provider:: Ilana Cristina Advanced Practice Provider documentation review:: The Mid-level provider documentation, treatment plan and medical decision making was reviewed by the physician who agrees with all treatment and medical decision making by the MLP. The physician spent face to face time with patient:: Yes Advanced Practice Provider documentation review:: The physician spent face to face time with this patient and agrees with all MLP documentation, treatment, and medical decision making by the MLP. See provider notes for further information. This chart was documented by the indicated scribe, (Valery Ace Scribe) and accurately reflects the services I performed and decisions made by , Ilana Cristina CRNP, as attested by the provider's signature.
[2017-04-03] MEDS ORDERED: LINZESS ONE (16:32)
[2017-04-04] MEDS: LEVAQUIN 500 MG/D5W 500 MG/100 ML IVPB IV SCH (07:58)
[2017-04-04] MEDS: CASODEX PO SCH (09:34)
[2017-04-04] MEDS ORDERED: TYLENOL WITH CODEINE #3 PO ONE (11:30)
[2017-04-04 12:19] LABS: MANUAL DIFF NEEDED? NO
[2017-04-04 12:20] LABS: BASO% 0.1 % (0.0-0.8); EOS# 0.17 X1000 (0.0-0.7); EOS% 1.5 % (0.0-10.0); HEMATOCRIT 36.4 % (42.0-52.0); HEMOGLOBIN 11.7 g/dL (14.0-18.0); IMM GRAN# 0.01 X1000 (0.0-0.04); IMM GRAN% 0.1 % (0.0-0.5); LYMPH# 1.63 X1000 (1.2-3.4); LYMPH% 14.6 % (20.5-51.1); MCHC 32.1 g/dL (33-37); MCV 96.3 FL (81-99); MONO# 0.37 X1000 (0.11-0.59); MONO% 3.3 % (1.7-9.3); MPV 9.6 FL (7.4-10.4); NEUT% 80.4 % (42.2-75.2); PLT 294 X1000 (130-400); RBC 3.78 XMIL (4.7-6.1)
[2017-04-04 13:16] LABS: ALBUMIN 3.3 g/dL (3.5-5.0); CALCIUM 8.9 mg/dL (8.8-10.2); POTASSIUM 4.6 mmol/L (3.5-5.1); TOTAL BILIRUBIN 0.3 mg/dL (0.20-1.00); TOTAL PROTEIN 6.9 g/dL (6.3-8.3)
[2017-04-04] MEDS: NS 1,000 ML IV SCH (20:45)
[2017-04-04] MEDS: FLOMAX PO SCH (20:45)
[2017-04-05] MEDS: NS 1,000 ML IV SCH ×2 (06:06→16:45)
[2017-04-05] MEDS: LEVAQUIN 500 MG/D5W 500 MG/100 ML IVPB IV SCH (06:06)
[2017-04-05 06:08] LABS: MANUAL DIFF NEEDED? NO
[2017-04-05 06:17] LABS: BASO% 0.1 % (0.0-0.8); EOS# 0.37 X1000 (0.0-0.7); HEMOGLOBIN 11.2 g/dL (14.0-18.0); IMM GRAN# 0.03 X1000 (0.0-0.04); IMM GRAN% 0.2 % (0.0-0.5); LYMPH# 2.14 X1000 (1.2-3.4); LYMPH% 17.2 % (20.5-51.1); MCH 30.6 PG (27-31); MCV 95.6 FL (81-99); MONO% 5.6 % (1.7-9.3); MPV 9.8 FL (7.4-10.4); NEUT% 73.9 % (42.2-75.2); PLT 282 X1000 (130-400); RBC 3.66 XMIL (4.7-6.1)
[2017-04-05 06:38] LABS: ALBUMIN 3.2 g/dL (3.5-5.0); CALCIUM 8.8 mg/dL (8.8-10.2); POTASSIUM 4.1 mmol/L (3.5-5.1); TOTAL BILIRUBIN 0.3 mg/dL (0.20-1.00); TOTAL PROTEIN 6.6 g/dL (6.3-8.3)
--- NOTE | 2017-04-05 08:06 | Diag Imaging Result Doc PS360 ---
EXAM: FLAT/UPRIGHT ABD/1 VIEW CHEST HISTORY: pna/constipation TECHNIQUE: Four views COMPARISON: 04/03/2017 FINDINGS: Poor inspiratory effort. There are increased interstitial markings throughout the lungs. Heart is not enlarged. Questionable tiny pleural effusions. There are many pieces of metal overlying the right side of the abdomen. No free air beneath the diaphragm. There is stool throughout the colon. No organomegaly. IMPRESSION: 1.Constipation and possible fecal impaction 2.Increased interstitial markings believed to be fibrosis Electronically signed by Phani Burgess 04/05/2017 8:04 AM
[2017-04-05] MEDS: TYLENOL PO PRN (09:26)
[2017-04-05] MEDS: CASODEX PO SCH (09:27)
[2017-04-05] MEDS ORDERED: LINZESS PO ONE ×2 (18:14→18:30)
[2017-04-05] MEDS ORDERED: NS 1,000 ML IV ONE ×2 (18:16→18:56)
[2017-04-05] MEDS: FLOMAX PO SCH (23:28)
[2017-04-06] MEDS: LEVAQUIN 500 MG/D5W 500 MG/100 ML IVPB IV SCH (06:19)
[2017-04-06 11:23] LABS: MANUAL DIFF NEEDED? NO
[2017-04-06] MEDS: CASODEX PO SCH (11:34)
[2017-04-06 11:39] LABS: BASO% 0.1 % (0.0-0.8); EOS# 0.23 X1000 (0.0-0.7); EOS% 2.2 % (0.0-10.0); HEMATOCRIT 34.4 % (42.0-52.0); HEMOGLOBIN 10.9 g/dL (14.0-18.0); IMM GRAN# 0.01 X1000 (0.0-0.04); IMM GRAN% 0.1 % (0.0-0.5); LYMPH# 1.98 X1000 (1.2-3.4); LYMPH% 18.5 % (20.5-51.1); MCH 30.6 PG (27-31); MCHC 31.7 g/dL (33-37); MCV 96.6 FL (81-99); MONO# 0.62 X1000 (0.11-0.59); MONO% 5.8 % (1.7-9.3); MPV 9.7 FL (7.4-10.4); NEUT% 73.3 % (42.2-75.2); PLT 291 X1000 (130-400); RBC 3.56 XMIL (4.7-6.1)
[2017-04-06 12:00] LABS: ALBUMIN 3.2 g/dL (3.5-5.0); CALCIUM 8.7 mg/dL (8.8-10.2); POTASSIUM 4.6 mmol/L (3.5-5.1); TOTAL BILIRUBIN 0.3 mg/dL (0.20-1.00); TOTAL PROTEIN 6.1 g/dL (6.3-8.3)
[2017-04-06] MEDS: FLOMAX PO SCH (21:55)
[2017-04-07] MEDS: LEVAQUIN 500 MG/D5W 500 MG/100 ML IVPB IV SCH (06:24)
[2017-04-07] MEDS: TYLENOL PO PRN (08:47)
[2017-04-07] MEDS: CASODEX PO SCH (08:47)
[2017-04-07 12:01] VITALS: BP 105/57
[2017-04-07] MEDS ORDERED: ZOFRAN ODT PO PRN (12:59)
--- NOTE | 2017-04-22 17:06 | HISTORY AND PHYSICAL ---
HISTORY OF PRESENT ILLNESS: The patient is an office patient of [employer], who presented to the emergency room complaining of generalized pain, feeling sick all over for weeks associated with some dysuria, subjective fever, nausea, vomiting, and he has recently had just generalized increase in pain. This has all been going on, he claims 3 days, not a good historian. He has assorted muscle aches, joint pains, fever, subjective chills, constipation, arm pain, neck pain, back pain, generalized joint pain, sinus congestion with drainage. ALLERGIES: He has no known allergies. VITAL SIGNS, LABORATORY DATA, AND DIAGNOSTICS DONE IN THE EMERGENCY ROOM: He had a temperature of 97.9 degrees, pulse was 82, respiratory was 18, blood pressure 143/79, O2 saturation was 90. His chest x-ray done in the ER: Pulmonary fibrosis. He also had an EKG: Nonspecific ST-segment changes. Possible lateral ischemia. Belly film showing abnormal, severe, rectal stool impaction. He had white count of 14,320, hematocrit of 36.5, platelet count 306,000, hemoglobin 11.9. It is felt by the ER physician that the patient had constipation along with possible UTI. He was admitted with questionable pneumonia. His other laboratory, relatively speaking, showed that he was a little bit anemic, normochromic/normocytic. White count was 10,690, platelet count was 291,000. D-dimer 0.43. Chemistries: BUN was 44, creatinine 1.4 on admission. Sodium 141, potassium 4.5, chloride 106, carbon dioxide 23, GFR 48. BUN and creatinine ratio of 31, glucose 141. Calcium 95, total bilirubin 0.4, AST 15, ALT 9, alkaline phosphatase 114. Total protein 73, albumin 3.6, globulin 4. PSA screen was 0.04. Cardiac enzymes: CK 32. Troponin less than 0.01. His urine was very cloudy specific gravity, 2+ blood, 2+ bacteria, less than 10 epithelial cells, less than 10 red cells, less than 10 WBCs. Abdominal film kept showing what appeared to be constipation and possibly an impaction. He was admitted from the emergency room. HOME MEDICATIONS: 1. Flomax. 2. Casodex. MEDICATIONS WHILE IN THE EMERGENCY ROOM: In the ER, he was placed on albuterol, ceftriaxone for the suspected urinary tract infection, levofloxacin, Linzess for constipation, Casodex, Tylenol with codeine, Flomax were the main medications. PAST MEDICAL HISTORY: 1. History of prostate cancer. 2. History of BPH. 3. He has a history of kidney stones. 4. History of stroke. 5. History of hypertension. 6. History of diabetes. 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 ALLERGIES: No allergies. REVIEW OF SYSTEMS: He denied any fever, chills, night sweats. EYES: No visual field cuts, changes in visual acuity. EARS/NOSE/THROAT: No pharyngitis, otitis, or rhinitis. CARDIOVASCULAR: No chest pain, palpitations. He has had some edema. No PND. No orthopnea. No claudication. RESPIRATORY: No cough, shortness of breath. GASTROINTESTINAL: Constipation. Denies diarrhea, nausea or vomiting. GENITOURINARY: Has some urinary obstructive symptoms. MUSCULOSKELETAL: Some degenerative changes in his back altering his movement. He is quite stiff on movement. SKIN: Clear other than senile ecchymoses. NEUROLOGIC: No focal deficits were appreciated. No stroke-like symptoms. PSYCHIATRIC: Patient recognized me and was aware of his place. ENDOCRINE: No polyuria or polydipsia, heat or cold intolerance. HEMATOLOGICAL: No clotting. No bleeding disorders. ALLERGIES: No asthma or hay fever. PHYSICAL EXAMINATION: VITAL SIGNS: At the time of admission, temperature was 97.9 degrees, pulse was 82, respiratory 18, BP 143/79. O2 saturation 90. HEENT: Head was normocephalic. Eyes were PERRLA. EOMs intact. Sclerae clear. Fundi benign. Nares patent. Oropharynx negative. NECK: Supple. Bounding carotids without thyromegaly or lymphadenopathy. CHEST: Clear bilateral breath sounds. Rhonchi. No consolidative features. HEART: Regular rhythm and rate. No murmurs, gallops, clicks, rubs. ABDOMEN: Soft. No hepatosplenomegaly. No CVA tenderness. EXTREMITIES: Negative for clubbing, cyanosis. ADMITTING DIAGNOSIS FROM THE ER: 1. Urinary tract infection. 2. Pneumonia. 3. Constipation. He was admitted and placed on broad-spectrum antibiotics as we were pending cultures cc: Michele Luo MD
--- NOTE | 2017-04-22 17:35 | DISCHARGE SUMMARY ---
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 He presented to the emergency room and was admitted with a suspected pneumonia and possible urinary tract infection and he was placed upstairs. His medications in the hospital include the following: His admission medicines were only tamsulosin 0.4 and Casodex 50 mg daily. He was placed here however on Rocephin and levofloxacin for suspected UTI/pneumonia and also Linzess for his constipation, his maintenance Casodex and Flomax along with some fluids and episodic Zofran. He is ultimately discharged on Flomax, Casodex, Zofran. During this hospital stay he was cultured, nothing growing out of his blood nor his urine during this stay. He had some imaging including a chest x-ray that was read as pulmonary fibrosis and some abdominal films which showed severe rectal stool impaction. We ended up manually evacuating the stool ball. During this stay he had a low grade 99 temp, no other significant temp. Vital signs were relatively stable. Cultures as previously no growth in blood and urine. During the study he was clearly confused at times but he usually recognized me. His urine suspected UTI was culture negative. PSAs were undetectable or very low secondary to his previous surgeries and not rising. So we treated him for a period time. Once the culture started coming back negative and chest x-ray was normal, we stopped them and treated his nausea, his prostate cancer. During the hospital stay we followed the white count which went from 1432 down to 1069. Hematocrit was 36.5, dropped to 34.4. Platelet count was relatively steady. His initial comp, BUN is 44, creatinine 1.4. GFR was estimated at 48. Glucose was 141. The following day, it was up to and we began to hydrate the patient. His chemistries were all basically okay. His UA on admission 2+ blood, less than 10 WBCs, less than 10 RBCs, less than 10 epithelial cells and 2+ bacteria. Did not really run a temp here. Cultures did not izquierdo out. Patient was discharged demented, BPH with COPD patient. cc: Michele Luo MD
== END 2017-04-07 14:25 | disposition home health service (06) ==
LOC: P.ED 10:41 → SUATTDRO 15:36 → P.MEDSURG 15:36
PROVIDERS: ADMIT Internal Medicine; ATTEND Internal Medicine